=== PATIENT | female | born 1995 | race Caucasian/White ===

== ENCOUNTER 2023-07-14 01:29 | Emergency (ER) | payer OTHER ==
[2023-07-14 01:45] VITALS: BP 110/74; PULSE 74; RESP 18; TEMP 98.2; BMI 22.8
[2023-07-14 04:31] LABS: BASO % 0.7 % (0-2.0); EOS % 3.2 % (0-4.5); HEMATOCRIT 37.3 % (32.4-45.2); HEMOGLOBIN 12.3 GM/dL (10.7-15.3); LYMPH % 28.3 % (8-40); MCH 29.4 pg (25.7-33.7); MCHC 33.1 g/dl (32.0-36.0); MEAN CELL VOLUME 88.9 fl (80-96); MEAN PLT VOLUME 9.4 fl (7.5-11.1); MONO % 6.3 % (3.8-10.2); NEUT % 61.5 % (42.8-82.8); PLATELET COUNT 260 10^3/uL (134-434); RDW 13.4 % (11.6-15.6); WHITE BLOOD COUNT 9.9 K/mm3 (4.0-10.0)
[2023-07-14 04:50] LABS: POTASSIUM 3.7 mmol/L (3.5-5.1)
[2023-07-14 04:52] LABS: ALBUMIN 3.5 g/dl (3.4-5.0); BLOOD UREA NITROGEN 22.9 mg/dL (7-18); CALCIUM 8.8 mg/dL (8.5-10.1); MAGNESIUM 1.8 mg/dL (1.8-2.4)
[2023-07-14 04:57] LABS: BILIRUBIN,TOTAL 0.2 mg/dL (0.2-1); TOT PROT 6.4 g/dl (6.4-8.2)
== END 2023-07-14 05:53 | disposition home or self-care (01) ==
LOC: JER 01:29
DX: R00.2 Palpitations (principal); R05.9 Cough, unspecified; J00 Acute nasopharyngitis [common cold]; Z20.822 Contact with and (suspected) exposure to COVID-19
CPT/HCPCS: 0241U-QW; 36415; 71046-TC-FY; 80053; 83735; 84439; 84443; 84703; 85025; 86850; 86900; 86901; 93005; 93010; 99285-25

== ENCOUNTER 2024-05-26 22:10 | Inpatient (IN) | payer OTHER ==
[2024-05-26] MEDS: LACTATED RINGERS SOLUTION 1,000 ML IV ONE (23:00)
[2024-05-26] MEDS ORDERED: TERBUTALINE SULFATE 1 MG/1 ML VIAL SQ ONE (23:58)
[2024-05-27] MEDS: TERBUTALINE SULFATE 1 MG/1 ML VIAL SQ ONE ×2 (00:08→01:10)
[2024-05-27] MEDS: LACTATED RINGERS SOLUTION 1,000 ML IV SCH (01:10)
[2024-05-27 02:02] VITALS: BMI 27.6
[2024-05-27] MEDS: CITRIC ACID/SODIUM CITRATE 30 ML UNIT-DOSE CUP PO ONE (02:15)
[2024-05-27 02:27] LABS: BASO % 0.9 % (0-2.0); EOS % 1.4 % (0-4.5); HEMATOCRIT 31.5 % (32.4-45.2); HEMOGLOBIN 10.2 GM/dL (10.7-15.3); LYMPH % 37.2 % (8-40); MCH 30.4 pg (25.7-33.7); MCHC 32.3 g/dl (32.0-36.0); MEAN PLT VOLUME 9.4 fl (7.5-11.1); NEUT % 53.5 % (42.8-82.8); PLATELET COUNT 247 10^3/uL (134-434); RBC 3.35 M/mm3 (3.60-5.2); RDW 13.4 % (11.6-15.6); WHITE BLOOD COUNT 10.5 K/mm3 (4.0-10.0)
[2024-05-27 02:35] LABS: POTASSIUM 3.1 mmol/L (3.5-5.1)
[2024-05-27 02:37] LABS: BLOOD UREA NITROGEN 8.4 mg/dL (7-18); CALCIUM 8.3 mg/dL (8.5-10.1)
[2024-05-27 02:41] LABS: CREATININE 0.6 mg/dL (0.55-1.3)
[2024-05-27] MEDS ORDERED: KETOROLAC TROMETHAMINE 30 MG/1 ML VIAL ONE (02:57)
[2024-05-27] MEDS ORDERED: ceFAZolin SODIUM 1 GM VIAL ONE (02:57)
[2024-05-27] MEDS ORDERED: PHENYLEPHRINE HCL 10 MG/1 ML SINGLE DOSE VIAL ONE (02:57)
[2024-05-27] MEDS ORDERED: OXYTOCIN 10 UNITS/ML VIAL ONE (02:57)
[2024-05-27] MEDS ORDERED: morphine SULFATE/PF 1 MG/2 ML (2cc Syringe - QUVA) ONE (02:57)
[2024-05-27] MEDS ORDERED: ONDANSETRON 4 MG/2 ML VIAL ONE (02:57)
[2024-05-27] MEDS ORDERED: FENTANYL CITRATE/PF 50 MCG/ML VIAL ONE (02:57)
[2024-05-27 03:34] LABS: HIV INTERPRETATION NEGATIVE (NEGATIVE)
[2024-05-27 03:39] LABS: INR 0.93 (0.83-1.09); PROTHROMBIN TIME (PATIENT) 10.7 SEC (9.7-13.0)
[2024-05-27 03:42] LABS: ACTIVATED PTT 26.1 SECONDS (25.2-36.5)
[2024-05-27] MEDS: ACETAMINOPHEN 325 MG TABLET (FP) PO ONE (03:55)
[2024-05-27] MEDS ORDERED: ACETAMINOPHEN 325 MG TABLET (FP) PO PRN (04:27)
[2024-05-27] MEDS ORDERED: METHYLERGONOVINE MALEATE 0.2 MG/1 ML AMP IM PRN (04:27)
[2024-05-27] MEDS ORDERED: OXYTOCIN 20 UNITS in 0.9% NS 20 UNIT/1,000 ML INFUS.BAG IV ONE (07:58)
[2024-05-27] MEDS: OXYTOCIN 20 UNITS in 0.9% NS 20 UNIT/1,000 ML INFUS.BAG IV SCH (08:00)
[2024-05-27] MEDS: ONDANSETRON 4 MG/2 ML VIAL IVPUSH PRN (09:20)
[2024-05-27] MEDS: DEXTROSE 5%-NORMAL SALINE 1,000 ML IV ONE (13:41)
[2024-05-27] MEDS ORDERED: oxyCODONE HCL 5 MG TABLET PO PRN (16:27)
[2024-05-27] MEDS: ACETAMINOPHEN 1000 MG/100 ML BAG IVPB PRN (21:12)
[2024-05-28] MEDS ORDERED: BISACODYL 10 MG SUPP.RECT RC PRN (04:27)
[2024-05-28 08:30] LABS: BASO % 0.4 % (0-2.0); EOS % 1.4 % (0-4.5); HEMATOCRIT 32.2 % (32.4-45.2); HEMOGLOBIN 10.9 GM/dL (10.7-15.3); LYMPH % 19.9 % (8-40); MCH 31.2 pg (25.7-33.7); MCHC 33.7 g/dl (32.0-36.0); MEAN CELL VOLUME 92.4 fl (80-96); MEAN PLT VOLUME 9.3 fl (7.5-11.1); MONO % 6.2 % (3.8-10.2); NEUT % 72.1 % (42.8-82.8); PLATELET COUNT 224 10^3/uL (134-434); RBC 3.49 M/mm3 (3.60-5.2); RDW 13.6 % (11.6-15.6); WHITE BLOOD COUNT 9.6 K/mm3 (4.0-10.0)
[2024-05-28] MEDS: SIMETHICONE 80 MG TAB.CHEW (FP) PO PRN (08:50)
[2024-05-28] MEDS: IBUPROFEN 600 MG TABLET (FP) PO PRN (08:50)
[2024-05-29] MEDS: oxyCODONE HCL 5 MG TABLET PO PRN (01:20)
[2024-05-30 08:36] LABS: BASO % 0.7 % (0-2.0); EOS % 4.5 % (0-4.5); HEMOGLOBIN 10.4 GM/dL (10.7-15.3); LYMPH % 26.8 % (8-40); MCH 31.1 pg (25.7-33.7); MCHC 33.6 g/dl (32.0-36.0); MEAN CELL VOLUME 92.7 fl (80-96); MEAN PLT VOLUME 9.2 fl (7.5-11.1); MONO % 6.2 % (3.8-10.2); NEUT % 61.8 % (42.8-82.8); PLATELET COUNT 239 10^3/uL (134-434); RBC 3.35 M/mm3 (3.60-5.2); RDW 13.2 % (11.6-15.6); WHITE BLOOD COUNT 6.2 K/mm3 (4.0-10.0)
[2024-05-30 10:54] VITALS: BP 100/66; PULSE 76; RESP 17; TEMP 98.4
== END 2024-05-30 12:59 | disposition home or self-care (01) | DRG 540 ==
LOC: JDEL 22:10 → JLDR 05-27 01:43 → J3W 05-27 08:00
PROVIDERS: ADMIT Obstetrics & Gynecology Obstetrics; ATTEND Obstetrics & Gynecology Obstetrics
PROC: 10D00Z1 Extraction of Products of Conception, Low, Open Approach (ICD-10-PCS; principal; 2024-05-27)
DX: O34.211 Maternal care for low transverse scar from previous cesarean delivery (principal); Z3A.37 37 weeks gestation of pregnancy; Z37.0 Single live birth
CPT/HCPCS: 36415; 59025; 59409; 80048; 85025; 85610; 85730; 86780; 86850; 86900; 86901; 87389; 88307-TC; J0131